=== PATIENT | male | born 1975 | race Caucasian/White ===

== ENCOUNTER 2019-11-27 06:07 | Emergency (ER) | payer MEDICAID ==
[~2019-11-27] VITALS: Ht 180.3 cm; Wt 79.0 kg
--- NOTE | 2019-11-27 06:10 | NUR ---
ATTEMPTED TO CALL PT FROM LOBBY TO TRIAGE. PT NIL X 1
[2019-11-27 06:17] VITALS: BP 128/80
[2019-11-27] MEDS ORDERED: PROPARACAINE OPHTH 0.5%, 15ML ONE (06:34)
[2019-11-27] MEDS ORDERED: FLUORESCEIN OPHTHALMIC 1 MG STRIP ONE (06:34)
--- NOTE | 2019-11-27 06:55 | NUR ---
RECEIVED REPORT FROM SHANEKA DEE. PT LAYING IN BED, EYES CLOSED, RESPIRATIONS EVEN AND UNLABORED, OPENED EYES WHEN I ENTERED THE ROOM. UPDATED PT ON POC, ALL QUESTIONS ANSWERED AT THIS TIME. WILL CONTINUE TO MONITOR.
[2019-11-27] MEDS ORDERED: ERYTHROMYCIN OPHTH 0.5%, 1GM RIGHTEYE ONE (07:00)
--- NOTE | 2019-11-27 07:05 | NUR ---
PT AMBULATORY TO BATHROOM, STEADY GAIT.
--- NOTE | 2019-11-27 08:03 | NUR ---
RIGHT EYE CLEANED OF OBVIOUS DISCHARGE, PT TOLERATED WELL. PT MEDICATED TO MAR AND EDUCATED ABOUT HOME MEDS. PT COMMUNIATED UNDERSTANDING.
== END 2019-11-27 08:06 | disposition home or self-care (01) ==
LOC: ED 07:08
DX: H10.021 Other mucopurulent conjunctivitis, right eye (principal); B99.9 Unspecified infectious disease; E11.9 Type 2 diabetes mellitus without complications; F17.210 Nicotine dependence, cigarettes, uncomplicated
CPT/HCPCS: 99283

== ENCOUNTER 2019-11-28 00:03 | Inpatient (IN) | payer MEDICAID ==
[~2019-11-28] VITALS: Ht 180.3 cm; Wt 80.9 kg
[2019-11-28] MEDS ORDERED: FLUORESCEIN OPHTHALMIC 1 MG STRIP ONE (00:27)
[2019-11-28] MEDS ORDERED: PROPARACAINE OPHTH 0.5%, 15ML ONE (00:27)
[2019-11-28] MEDS ORDERED: MORPHINE SULFATE 4 MG/ML, 1ML IVPush PRN (00:30)
[2019-11-28] MEDS ORDERED: SODIUM CHLORIDE FLUSH 10ML SYR IVF ONE (00:30)
[2019-11-28] MEDS ORDERED: PROPARACAINE OPHTH 0.5%, 15ML EACHEYE ONE (00:30)
[2019-11-28] MEDS ORDERED: MORPHINE SULFATE 4 MG/ML, 1ML ONE (00:44)
[2019-11-28 01:09] LABS: BASOPHILS # (AUTO) 0.05 x10^3/uL (0-0.1); BASOPHILS % (AUTO) 1 % (0-1); EOSINOPHILS # (AUTO) 0.31 x10^3/uL (0-0.4); EOSINOPHILS % (AUTO) 3 % (1-7); LYMPHOCYTES # (AUTO) 2.82 x10^3/uL (1-3.4); LYMPHOCYTES % (AUTO) 29 % (22-44); MD NO; MEAN CORPUSCULAR HEMOGLOBIN 31.4 pg (27.5-34.5); MEAN CORPUSCULAR HGB CONC 33.8 g/dL (33.2-36.2); MEAN PLATELET VOLUME 8.7 fL (7.4-10.4); MONOCYTES # (AUTO) 0.72 x10^3/uL (0.2-0.8); MONOCYTES % (AUTO) 7 % (2-9); NEUTROPHILS # (AUTO) 5.93 x10^3/uL (1.8-6.8); NEUTROPHILS % (AUTO) 60 % (42-75); PLATELET COUNT 250 x10^3/uL (130-400); RED BLOOD COUNT 4.82 x10^6/uL (4.38-5.82); RED CELL DISTRIBUTION WIDTH 13.1 % (9.4-14.8)
[2019-11-28 01:12] LABS: ANION GAP 6 mmol/L (5-15); CHLORIDE 94 mmol/L (98-107); CREATININE 1.28 mg/dL (0.7-1.3)
[2019-11-28] MEDS ORDERED: CEFTRIAXONE PMX 1GM/50ML 50 ML ONE (01:24)
[2019-11-28] MEDS ORDERED: CEFTRIAXONE PMX 1GM/50ML 50 ML IV ONE (01:30)
[2019-11-28] MEDS ORDERED: SODIUM CHLORIDE 0.9% 1,000ML IVBOLUS ONE (01:30)
[2019-11-28] MEDS ORDERED: DOXYCYCLINE 100 MG in DEXTROSE 5% 250 ML IV SCH ×2 (01:30→14:00)
--- NOTE | 2019-11-28 01:55 | NUR ---
Pt IV infiltrated, pt was unaware. IV pulled and Aris, RN is attempting to place another
--- NOTE | 2019-11-28 02:05 | NUR ---
6 IV attempts made by multiple rns. Pt now refusing further IV attempts. Will notify
[2019-11-28] MEDS ORDERED: ACETAMINOPHEN 325 MG TABLET PO PRN (02:30)
[2019-11-28] MEDS ORDERED: hydrALAzine 20 MG/ML, 1ML IVPush PRN (02:30)
[2019-11-28] MEDS ORDERED: ONDANSETRON 2MG/ML, 2ML IVPush PRN (02:30)
[2019-11-28 02:44] VITALS: BP 138/78
[2019-11-28] MEDS: AZITHROMYCIN 500 MG TABLET PO ONE ×2 (03:00→03:25)
[2019-11-28] MEDS: INSULIN LISPRO 100 UNITS/ML, PEN SQ-INSULIN SCH ×5 (03:05→22:04)
[2019-11-28] MEDS: LACTATED RINGERS 1,000 ML IV SCH ×2 (04:17→11:54)
[2019-11-28 08:09] VITALS: BP 125/77
[2019-11-28] MEDS ORDERED: PHARMACOKINETIC MONITORING MC PRN (11:00)
[2019-11-28] MEDS ORDERED: VANCOMYCIN PER PHARMACY MC PRN (11:00)
[2019-11-28] MEDS: VANCOMYCIN 1,400 MG in SODIUM CHLORIDE 0.9% 250 ML IV SCH (11:54)
[2019-11-28 13:18] VITALS: BP 126/77
[2019-11-28] MEDS: PIPERACILLIN/TAZO/PMX 3.375GM 50 ML IV SCH ×2 (17:40→23:26)
[2019-11-28] MEDS: HEPARIN 5,000 UNITS/ML, 1ML SQ SCH (17:41)
[2019-11-28] MEDS: DOXYCYCLINE 100MG TABLET PO SCH (17:45)
[2019-11-28 20:06] VITALS: BP 125/82
[2019-11-28] MEDS: INSULIN GLARGINE 100 UNITS/ML, PEN SQ-INSULIN SCH (22:05)
[2019-11-29] MEDS: VANCOMYCIN 1,400 MG in SODIUM CHLORIDE 0.9% 250 ML IV SCH ×2 (00:20→11:16)
[2019-11-29] MEDS: HEPARIN 5,000 UNITS/ML, 1ML SQ SCH ×3 (00:25→17:37)
[2019-11-29] MEDS ORDERED: CEFTRIAXONE PMX 1GM/50ML 50 ML IV SCH (01:00)
[2019-11-29 02:22] VITALS: BP 118/74
[2019-11-29 05:13] LABS: BASOPHILS # (AUTO) 0.05 x10^3/uL (0-0.1); BASOPHILS % (AUTO) 1 % (0-1); EOSINOPHILS # (AUTO) 0.27 x10^3/uL (0-0.4); EOSINOPHILS % (AUTO) 3 % (1-7); LYMPHOCYTES # (AUTO) 3.07 x10^3/uL (1-3.4); LYMPHOCYTES % (AUTO) 33 % (22-44); MD NO; MEAN CORPUSCULAR HEMOGLOBIN 31.4 pg (27.5-34.5); MEAN CORPUSCULAR HGB CONC 33.5 g/dL (33.2-36.2); MEAN CORPUSCULAR VOLUME 93.5 fL (81-97); MONOCYTES # (AUTO) 0.57 x10^3/uL (0.2-0.8); MONOCYTES % (AUTO) 6 % (2-9); NEUTROPHILS # (AUTO) 5.29 x10^3/uL (1.8-6.8); NEUTROPHILS % (AUTO) 57 % (42-75); PLATELET COUNT 219 x10^3/uL (130-400); RED BLOOD COUNT 4.72 x10^6/uL (4.38-5.82); RED CELL DISTRIBUTION WIDTH 12.9 % (9.4-14.8)
[2019-11-29] MEDS: PIPERACILLIN/TAZO/PMX 3.375GM 50 ML IV SCH ×4 (05:19→23:14)
[2019-11-29 05:24] LABS: ANION GAP 5 mmol/L (5-15); CALCIUM 8.1 mg/dL (8.5-10.1); CHLORIDE 103 mmol/L (98-107)
[2019-11-29 05:25] LABS: CREATININE 0.88 mg/dL (0.7-1.3)
[2019-11-29 06:42] LABS: AMPHETAMINE SCREEN, URINE Positive (Negative); BARBITURATE SCREEN, URINE Negative (Negative); BENZODIAZEPINE SCREEN, URINE Negative (Negative)
[2019-11-29 06:43] LABS: CANNABINOID SCREEN, URINE Negative (Negative); COCAINE SCREEN, URINE Negative (Negative); METHADONE SCREEN, URINE Negative (Negative); OPIATE SCREEN, URINE Positive (Negative)
[2019-11-29 06:47] VITALS: BP 129/80
[2019-11-29] MEDS: INSULIN LISPRO 100 UNITS/ML, PEN SQ-INSULIN SCH ×4 (07:00→22:03)
[2019-11-29] MEDS: DOXYCYCLINE 100MG TABLET PO SCH ×2 (07:56→17:36)
[2019-11-29] MEDS: LACTATED RINGERS 1,000 ML IV SCH (07:56)
[2019-11-29 13:51] VITALS: BP 113/67
[2019-11-29 20:15] VITALS: BP 119/74
[2019-11-29] MEDS: INSULIN GLARGINE 100 UNITS/ML, PEN SQ-INSULIN SCH (22:03)
[2019-11-30] MEDS: VANCOMYCIN 1,400 MG in SODIUM CHLORIDE 0.9% 250 ML IV SCH ×2 (00:10→12:07)
[2019-11-30 00:25] VITALS: BP 124/75
[2019-11-30] MEDS: HEPARIN 5,000 UNITS/ML, 1ML SQ SCH ×2 (01:12→08:55)
[2019-11-30] MEDS: PIPERACILLIN/TAZO/PMX 3.375GM 50 ML IV SCH ×2 (04:56→11:38)
[2019-11-30 05:04] LABS: BASOPHILS # (AUTO) 0.04 x10^3/uL (0-0.1); BASOPHILS % (AUTO) 1 % (0-1); EOSINOPHILS % (AUTO) 3 % (1-7); LYMPHOCYTES # (AUTO) 2.94 x10^3/uL (1-3.4); LYMPHOCYTES % (AUTO) 41 % (22-44); MD NO; MEAN CORPUSCULAR HEMOGLOBIN 31.4 pg (27.5-34.5); MEAN CORPUSCULAR HGB CONC 33.9 g/dL (33.2-36.2); MEAN CORPUSCULAR VOLUME 92.7 fL (81-97); MEAN PLATELET VOLUME 8.7 fL (7.4-10.4); MONOCYTES # (AUTO) 0.53 x10^3/uL (0.2-0.8); MONOCYTES % (AUTO) 7 % (2-9); NEUTROPHILS % (AUTO) 49 % (42-75); PLATELET COUNT 230 x10^3/uL (130-400); RED BLOOD COUNT 5.03 x10^6/uL (4.38-5.82); RED CELL DISTRIBUTION WIDTH 13.5 % (9.4-14.8)
[2019-11-30 05:11] LABS: CHLORIDE 103 mmol/L (98-107)
[2019-11-30 05:21] LABS: ANION GAP 9 mmol/L (5-15); CALCIUM 8.8 mg/dL (8.5-10.1); CREATININE 0.92 mg/dL (0.7-1.3)
[2019-11-30] MEDS: INSULIN LISPRO 100 UNITS/ML, PEN SQ-INSULIN SCH ×2 (07:00→12:07)
[2019-11-30 07:46] VITALS: BP 118/67
[2019-11-30] MEDS: DOXYCYCLINE 100MG TABLET PO SCH (08:55)
[2019-11-30] MEDS ORDERED: SULF1TAB24 PO (09:50)
[2019-11-30] MEDS ORDERED: AMOX1TAB64 PO (09:50)
[2019-11-30] MEDS ORDERED: INSU100I11 SQ-INSULIN (12:57)
[2019-11-30] MEDS ORDERED: INSU100I13 SQ-INSULIN (12:57)
[2019-11-30 13:58] VITALS: BP 116/64
[2019-11-30] MEDS ORDERED: SULFAMETH./TRIMETHOPRIM DS 800MG/160MG TABLET PO SCH (21:00)
[2019-11-30] MEDS ORDERED: AMOXICILLIN/CLAV 875-125MG TABLET PO SCH (21:00)
== END 2019-11-30 15:00 | disposition home or self-care (01) | DRG 383 ==
LOC: ED 00:48 → OBSVTOIN 01:19 → EDIP 01:19 → INTOOBSV 01:19 → 3N 02:37 → DCLOUNGE 11-30 14:55
PROVIDERS: ADMIT Family Medicine; ATTEND Internal Medicine
DX: L03.213 Periorbital cellulitis (principal); B18.2 Chronic viral hepatitis C; H10.021 Other mucopurulent conjunctivitis, right eye; E11.65 Type 2 diabetes mellitus with hyperglycemia; F17.210 Nicotine dependence, cigarettes, uncomplicated; Z79.4 Long term (current) use of insulin
CPT/HCPCS: 36415; 70481; 80048; 80202; 80307; 82040; 82962; 83036; 85025; 87491; 96374; 96375; 99285; G0378; J0696; J1644; J2543; J3370; J7060; J1815; J2270; J7030; J7050; J7120